=== PATIENT | male | born 1955 | race Caucasian/White ===

== ENCOUNTER → 2016-09-06 | Outpatient (CLI) | payer OTHER | LOC: HEART 5 13:56 | DX: R06.02 Shortness of breath (principal); F17.210 Nicotine dependence, cigarettes, uncomplicated | CPT/HCPCS: 94060; 94729 ==

== ENCOUNTER → 2016-09-07 | Outpatient (CLI) | payer OTHER | LOC: RAD 11:03 | DX: J44.9 Chronic obstructive pulmonary disease, unspecified (principal) | CPT/HCPCS: 36600; 71020; 82803 ==